=== PATIENT | female | born 1995 | race African-American/Black ===

== ENCOUNTER 2023-06-06 11:40 | Emergency (ER) | payer MEDICAID ==
[~2023-06-06] VITALS: Ht 162.6 cm; Wt 68.0 kg
[2023-06-06 11:46] VITALS: O2SAT 100
[2023-06-06] MEDS ORDERED: ACETAMINOPHEN 325MG TABLET PO ONE (13:00)
[2023-06-06 13:30] VITALS: TEMP 98.8
[2023-06-06] MEDS ORDERED: IBUP-2029 MT (14:07)
[2023-06-06] MEDS ORDERED: KETOROLAC 60MG/2ML VIAL IM ONE (14:15)
[2023-06-06 14:51] VITALS: BP 159/108; PULSE 85; RESP 16
== END 2023-06-06 15:16 | disposition home or self-care (01) ==
LOC: ER 11:40
DX: J02.8 Acute pharyngitis due to other specified organisms (principal); Z98.890 Other specified postprocedural states
CPT/HCPCS: 99284; 71045; 70360; 96372; J1885

== ENCOUNTER 2023-07-21 13:30 | Emergency (ER) | payer SELFPAY ==
[~2023-07-21 13:30] MED LIST: IBUP-2029 MT
== END 2023-07-21 15:09 | disposition left against medical advice (07) ==
LOC: ER 13:30
DX: M79.89 Other specified soft tissue disorders (principal); Z53.21 Procedure and treatment not carried out due to patient leaving prior to being seen by health care provider